=== PATIENT | male | born 1980 | race Caucasian/White ===

== ENCOUNTER 2016-09-25 15:26 | Emergency (ER) | payer OTHER ==
[~2016-09-25] VITALS: Ht 170.2 cm; Wt 93.1 kg
[2016-09-25] MEDS ORDERED: LORazepam 2 MG/ML (ATIVAN) 1 ML VIAL IV ONE (19:15)
[2016-09-25 19:32] LABS: BASOPHILS % (AUTO) 0 % (0-2); EOSINOPHILS # (AUTO) 0.1 10^3uL; EOSINOPHILS % (AUTO) 1 % (0-4); LYMPHOCYTES # (AUTO) 2.8 X10^3; MEAN CORPUSCULAR VOLUME 89 FL (80-100); MEAN PLATELET VOLUME 11.1 FL (6.0-9.5); MONOCYTES % (AUTO) 9 % (3-11); NEUTROPHILS # (AUTO) 7.3 X10^3; NEUTROPHILS % (AUTO) 65 % (51-67); PLATELET COUNT 203 10^3uL (150-450); WHITE BLOOD COUNT 11.26 10^3uL (4.0-11.0)
--- NOTE | 2016-09-25 19:32 | NUR ---
REPORT TAKEN FROM Misha PETER AND DOMINICK ACCEPTED CARE OF PT
[2016-09-25 19:34] LABS: MEAN CORPUSCULAR HEMOGLOBIN 31.7 PG (26.0-34.0); MEAN CORPUSCULAR HGB CONC 35.8 g/dL (31.0-37.0)
[2016-09-25 19:41] LABS: ALBUMIN 4.3 g/dL (3.4-5.0); ANION GAP 12.3 MEQ/L (3-15); TOTAL PROTEIN 7.6 g/dL (6.4-8.5)
[2016-09-25] MEDS ORDERED: ALPRAZolam 0.25 MG (XANAX) TAB PO ONE (19:55)
--- NOTE | 2016-09-25 20:05 | NUR ---
Makayla soto in [place] - 09/25/16 at 2012 by [id number] Pt back from x-ray.
[2016-09-25 21:05] VITALS: BP 147/96
== END 2016-09-25 21:07 | disposition home or self-care (01) ==
LOC: ED 15:27
DX: I10 Essential (primary) hypertension (principal); Z73.3 Stress, not elsewhere classified; R51 Headache
CPT/HCPCS: 36415; 80053; 85025; 93005; 96361; 96374; 99284; J2060; J7030; 93010; 99283